=== PATIENT | male | born 1950 | race African-American/Black ===

== ENCOUNTER 2023-09-06 13:21 | Emergency (ER) | payer BC, SELFPAY ==
[2023-09-06 13:30] VITALS: BP 156/99
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
[2023-09-06] MEDS: TORADOL 30 MG IM (14:04)
--- NOTE | 2023-09-06 15:56 | EDRN ---
Reviewed discharge instructions with patient. Verbalized understanding.
[2023-09-06 15:57] VITALS: BP 137/78
== END 2023-09-06 15:58 | disposition home or self-care (01) ==
LOC: EMR 13:21
PROVIDERS: EMERGENCY PHYSICIAN Student in an Organized Health Care Education/Training Program; FAMILY PHYSICIAN Internal Medicine
DX: S39.012A Strain of muscle, fascia and tendon of lower back, initial encounter (principal); X58.XXXA Exposure to other specified factors, initial encounter; R03.0 Elevated blood-pressure reading, without diagnosis of hypertension; Z87.891 Personal history of nicotine dependence
CPT/HCPCS: 99284; 96372; 72110

== ENCOUNTER → 2023-11-06 10:11 | Outpatient (REF) | payer BC, SELFPAY ==
[2023-11-06 10:58] LABS: % Basophils 0.6 % (0-2); % Eosinophils 0.9 % (0-6); % Immature Granulocytes 0.3 % (0-0.5); % Monocytes 7.9 % (1.7-9.3); % Neutrophils 71.3 % (42.2-75.2); Absolute Basophils 0.1 10^3/uL (0-0.2); Absolute Eosinophils 0.1 10^3/uL (0-0.7); Absolute Lymphocytes 1.5 10^3/uL (1.2-3.4); Absolute Monocytes 0.6 10^3/uL (0.1-0.6); Absolute Neutrophils 5.7 10^3/uL (1.4-6.5); Hematocrit 47.3 % (39.0-52.0); Hemoglobin 15.6 g/dL (13.0-18.0); Mean Corpuscular Hgb 30.3 pg (27.0-31.0); Mean Corpuscular Volume 91.8 fL (80.0-94.0); Mean Platelet Volume 9.8 fL (7.4-10.4); Nucleated Red Blood Cells % 0 % (-); Platelet Count 280 10^3/uL (130-400); Red Blood Cell Count 5.15 10^6/uL (4.70-6.10); Red Cell Dist. Width 13.5 % (11.5-14.5); White Blood Cell Count 7.9 10^3/uL (4.8-10.8)
[2023-11-06 11:37] LABS: ALT (SGPT) 16 U/L (0-50); AST (SGOT) 24 U/L (17-59); Albumin 4.2 g/dl (3.5-5.0); Alkaline Phosphatase 75 U/L (38-126); Blood Urea Nitrogen 14 mg/dl (9-20); Calcium 9.9 mg/dl (8.4-10.2); Carbon Dioxide 26 mmol/L (22-30); Chloride 106 mmol/L (98-107); Glucose 115 mg/dl (70-99); HDL Cholesterol 65 mg/dl; LDL Cholesterol, Calculated 121 mg/dl; Potassium 4.5 mmol/L (3.5-5.1); Sodium 139 mmol/L (135-145); Total Bilirubin 0.5 mg/dl (0.2-1.3); Total Cholesterol 214 mg/dl (50-199); Total Protein 6.8 g/dl (6.3-8.2); Triglyceride 141 mg/dl (10-149); Very Low Density Lipoprotein 28 mg/dl (0-30); eGFR > 60.00
[2023-11-06 12:31] LABS: PSA, Total - Screen 4.29 ng/ml (0.0-4.0); TSH Reflex To Free T4 0.64 uIU/ml (0.47-4.68)
== END ==
LOC: REG 10:11
PROVIDERS: ATTENDING PHYSICIAN Internal Medicine
DX: R73.9 Hyperglycemia, unspecified (principal); E78.01 Familial hypercholesterolemia; I10 Essential (primary) hypertension; R97.20 Elevated prostate specific antigen [PSA]
CPT/HCPCS: 36415; 80053; 80061; 84443; 85025; G0103

== ENCOUNTER → 2024-03-06 08:21 | Outpatient (REF) | payer BC, SELFPAY | LOC: MRI 3T 08:21 | PROVIDERS: ATTENDING PHYSICIAN Specialist; FAMILY PHYSICIAN Internal Medicine | DX: R97.20 Elevated prostate specific antigen [PSA] (principal) | CPT/HCPCS: 72197; A9575 ==

== ENCOUNTER → 2024-05-22 10:07 | Outpatient (REF) | payer BC, SELFPAY ==
[2024-05-22 12:01] LABS: PSA, Total - Diagnostic 3.34 ng/ml (0.0-4.0)
== END ==
LOC: REG 10:07
PROVIDERS: ATTENDING PHYSICIAN Specialist; FAMILY PHYSICIAN Internal Medicine
DX: R97.20 Elevated prostate specific antigen [PSA] (principal)
CPT/HCPCS: 36415; 84153

== ENCOUNTER 2024-07-16 06:26 | Day surgery (SDC) | payer BC, SELFPAY | END 2024-07-16 12:42 | disposition home or self-care (01) | LOC: GI 06:26 | PROVIDERS: ATTENDING PHYSICIAN Internal Medicine Gastroenterology | DX: K57.30 Diverticulosis of large intestine without perforation or abscess without bleeding (principal); K64.8 Other hemorrhoids; D12.0 Benign neoplasm of cecum; D12.3 Benign neoplasm of transverse colon; D12.5 Benign neoplasm of sigmoid colon; K63.5 Polyp of colon; K62.1 Rectal polyp | CPT/HCPCS: 45385; 45380; 88305 ==

== ENCOUNTER → 2024-11-19 11:41 | Outpatient (REF) | payer BC, SELFPAY ==
[2024-11-19 14:35] LABS: PSA, Total - Diagnostic 4.38 ng/ml (0.0-4.0)
== END ==
LOC: REG 11:41
PROVIDERS: ATTENDING PHYSICIAN Specialist; FAMILY PHYSICIAN Internal Medicine
DX: R97.20 Elevated prostate specific antigen [PSA] (principal)
CPT/HCPCS: 36415; 84153

== ENCOUNTER → 2024-12-15 12:12 | Outpatient (REF) | payer BC, SELFPAY ==
[2024-12-15 13:11] LABS: % Basophils 0.5 % (0-2); % Eosinophils 0.4 % (0-6); % Immature Granulocytes 0.3 % (0-0.5); % Lymphocytes 13.1 % (20.5-51.1); % Monocytes 7.5 % (1.7-9.3); % Neutrophils 78.2 % (42.2-75.2); Absolute Basophils 0.1 10^3/uL (0-0.2); Absolute Eosinophils 0.1 10^3/uL (0-0.7); Absolute Lymphocytes 1.6 10^3/uL (1.2-3.4); Absolute Monocytes 0.9 10^3/uL (0.1-0.6); Absolute Neutrophils 9.3 10^3/uL (1.4-6.5); Hematocrit 47.2 % (39.0-52.0); Hemoglobin 15.8 g/dL (13.0-18.0); Mean Corp Hgb Conc. 33.5 g/dL (33.0-37.0); Mean Corpuscular Volume 92.7 fL (80.0-94.0); Mean Platelet Volume 10.3 fL (7.4-10.4); Nucleated Red Blood Cells % 0 % (-); Platelet Count 290 10^3/uL (130-400); Red Blood Cell Count 5.09 10^6/uL (4.70-6.10); Red Cell Dist. Width 13.6 % (11.5-14.5); White Blood Cell Count 11.9 10^3/uL (4.8-10.8)
[2024-12-15 13:41] LABS: ALT (SGPT) 17 U/L (0-50); AST (SGOT) 20 U/L (17-59); Albumin 4.6 g/dl (3.5-5.0); Alkaline Phosphatase 87 U/L (38-126); Blood Urea Nitrogen 17 mg/dl (9-20); Calcium 9.9 mg/dl (8.4-10.2); Carbon Dioxide 26 mmol/L (22-30); Chloride 107 mmol/L (98-107); Glucose 88 mg/dl (70-99); HDL Cholesterol 62 mg/dl; LDL Cholesterol, Calculated 144 mg/dl; Potassium 4.7 mmol/L (3.5-5.1); Sodium 142 mmol/L (135-145); Total Bilirubin 0.5 mg/dl (0.2-1.3); Total Cholesterol 222 mg/dl (50-199); Total Protein 7.3 g/dl (6.3-8.2); Triglyceride 84 mg/dl (10-149); Very Low Density Lipoprotein 16 mg/dl (0-30); eGFR > 60.00
[2024-12-15 14:10] LABS: TSH Reflex To Free T4 0.52 uIU/ml (0.47-4.68)
== END ==
LOC: RAD 12:12
PROVIDERS: ATTENDING PHYSICIAN Specialist; FAMILY PHYSICIAN Internal Medicine
DX: R39.15 Urgency of urination (principal); Z00.00 Encounter for general adult medical examination without abnormal findings
CPT/HCPCS: 36415; 76770; 80053; 80061; 84443; 85025

== ENCOUNTER 2025-03-10 06:13 | Day surgery (SDC) | payer BC, SELFPAY ==
[2025-02-25 14:04] VITALS: BMI 25.3
--- NOTE | 2025-03-03 12:18 | PTCARENOTE ---
PT states had +MRSA 07/2022 during inpatient visit at . Upon the review of the record, microbiology showing +MSSA result (culture sensitive to amoxicillin). Sharlene Guerrero (IP) notified, confirmed no record of hx MRSA linked to any stay at ,
therefore no need for isolation. RN called patient and provided detailed education.
[2025-03-10] VITALS (15 sets, daily range): BP systolic 82–157; BP diastolic 49–96; BMI 25.3
[2025-03-10] MEDS: NORMOSOL-R/PLASMALYTE-A 1000 IV (07:15)
--- NOTE | 2025-03-10 09:15 | W.IMMPOSTOP ---
Surgical Immed Post Op Note
-
Primary Surgeon: Franchesca
Assisting Surgeon: None
Pre-op Diagnosis: BPH
Post-op Diagnosis: Same
Procedure Performed: TURP
Anesthesia Type: GET
Specimen / Cultures: prostate chips
Estimated Blood Loss: 15 ml
Complications: None
[2025-03-10] MEDS: DILAUDID 0.25 MG IV ×2 (09:25→09:37)
[2025-03-10 10:11] LABS: Blood Urea Nitrogen 13 mg/dl (9-20); Calcium 8.8 mg/dl (8.4-10.2); Carbon Dioxide 25 mmol/L (22-30); Chloride 107 mmol/L (98-107); Estimated Creatinine Clearance 96 ml/min; Glucose 125 mg/dl (70-99); Potassium 4.9 mmol/L (3.5-5.1); Sodium 134 mmol/L (135-145); eGFR > 60.00
[2025-03-10] MEDS: LR 1000 IV ×2 (12:07→23:00)
[2025-03-10] MEDS: COLACE 100 MG PO ×2 (12:07→16:42)
[2025-03-10] MEDS: ANCEF 10 IV ×2 (15:14→21:30)
[2025-03-10] MEDS: AMBIEN 10 MG PO (21:16)
[2025-03-11 03:25] VITALS: BP 136/72
[2025-03-11] MEDS: ANCEF 10 IV ×3 (05:15→22:02)
[2025-03-11 06:02] LABS: Hematocrit 43.0 % (39.0-52.0); Hemoglobin 14.4 g/dL (13.0-18.0); Mean Corp Hgb Conc. 33.5 g/dL (33.0-37.0); Mean Corpuscular Volume 91.3 fL (80.0-94.0); Platelet Count 282 10^3/uL (130-400); Red Cell Dist. Width 12.8 % (11.5-14.5)
[2025-03-11 06:28] LABS: Blood Urea Nitrogen 11 mg/dl (9-20); Calcium 9.4 mg/dl (8.4-10.2); Carbon Dioxide 25 mmol/L (22-30); Chloride 108 mmol/L (98-107); Estimated Creatinine Clearance 96 ml/min; Glucose 112 mg/dl (70-99); Potassium 4.2 mmol/L (3.5-5.1); Sodium 138 mmol/L (135-145); eGFR > 60.00
[2025-03-11] MEDS: COLACE 100 MG PO ×3 (06:41→17:26)
[2025-03-11 08:20] VITALS: BP 141/75
--- NOTE | 2025-03-11 08:40 | W.PN.SURGUPD ---
Surgical Update
Surgical Update
Stable 1 day s/p TURP
Afeb/VSS
Comfortable
Labs good
Pedro diet
---
Stop CBI at 1500 today
OOB
[2025-03-11] MEDS: PAXIL 10 MG PO (08:46)
[2025-03-11] MEDS: NORVASC 5 MG PO (08:46)
[2025-03-11] MEDS: PROSCAR 5 MG PO (08:47)
[2025-03-11 11:26] VITALS: BP 137/70
--- NOTE | 2025-03-11 12:33 | CM ---
Cm reviewed medical records. Patient denies VN, SNF or DME. patient is active with his PCP. Patient has medication coverage.
PLAN: home vs Home with [facility], pending TOV
[2025-03-11] MEDS: LR 1000 IV (12:40)
[2025-03-11 15:46] VITALS: BP 135/68
[2025-03-11 19:15] VITALS: BP 143/72
[2025-03-11] MEDS: ATIVAN 0.5 MG PO (22:02)
[2025-03-11 23:15] VITALS: BP 159/82
[2025-03-12] MEDS: COLACE 100 MG PO ×2 (06:30→13:14)
[2025-03-12] MEDS: ANCEF 10 IV (06:30)
[2025-03-12 07:20] VITALS: BP 136/76
[2025-03-12] MEDS: PAXIL 10 MG PO (08:46)
[2025-03-12] MEDS: PROSCAR 5 MG PO (08:46)
[2025-03-12] MEDS: NORVASC 5 MG PO (08:46)
--- NOTE | 2025-03-12 09:51 | W.DS.TRANS ---
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
-
Discharge Instructions:
Sleep Apnea Risk Intermediate
Instructions:
Stand-Alone Forms:
Changes to Home Medications: No
Discharge Medications:
DC Medications w/original date entered in [facility]
paroxetine HCl 10 mg tablet 10 mg PO DAILY Mental Health/Anxiety 01/31/10
amlodipine 5 mg tablet 5 mg PO DAILY Blood pressure 01/13/15
finasteride 5 mg tablet (Proscar) 5 mg PO DAILY 03/03/25
lorazepam 0.5 mg tablet 0.5 mg PO DAILY PRN ANXIETY 03/03/25
sulfamethoxazole 800 mg-trimethoprim 160 mg tablet (Bactrim DS) 1 tab PO Q12H COMPLICATION POST HERNIA 03/03/25
vibegron 75 mg tablet (Gemtesa) 75 mg PO DAILY 03/03/25
zolpidem 10 mg tablet (Ambien) 10 mg PO HS PRN INSOMNIA 03/03/25
Home Medication Changes
Pending Results: No
--- NOTE | 2025-03-12 10:30 | CM ---
Reviewed the chart notes and spoke with the patient at the bedside. Patient for discharge to home today. No needs. Friend will provide transportation.
[2025-03-12 11:20] VITALS: BP 152/74
== END 2025-03-12 13:33 | disposition home or self-care (01) ==
LOC: SDS 06:13
PROVIDERS: ATTENDING PHYSICIAN Specialist; FAMILY PHYSICIAN Internal Medicine
DX: N40.1 Benign prostatic hyperplasia with lower urinary tract symptoms (principal); R33.8 Other retention of urine; N32.81 Overactive bladder
CPT/HCPCS: 52601; 36415; 80048; 85027; 88305; 93005

== ENCOUNTER → 2025-05-05 11:16 | Outpatient (REF) | payer BC, SELFPAY ==
[2025-05-05 12:58] LABS: Glycohemoglobin (HgbA1c) 5.3 % (4.0-5.9)
[2025-05-05 13:05] LABS: ALT (SGPT) 17 U/L (0-50); AST (SGOT) 19 U/L (17-59); Albumin 4.4 g/dl (3.5-5.0); Alkaline Phosphatase 79 U/L (38-126); Blood Urea Nitrogen 18 mg/dl (9-20); Calcium 9.9 mg/dl (8.4-10.2); Carbon Dioxide 28 mmol/L (22-30); Chloride 105 mmol/L (98-107); Glucose 109 mg/dl (70-99); HDL Cholesterol 67 mg/dl; LDL Cholesterol, Calculated 143 mg/dl; Potassium 4.5 mmol/L (3.5-5.1); Sodium 139 mmol/L (135-145); Total Protein 7.1 g/dl (6.3-8.2); Very Low Density Lipoprotein 22 mg/dl (0-30); eGFR > 60.00
[2025-05-05 14:07] LABS: PSA, Total - Diagnostic 4.99 ng/ml (0.0-4.0)
== END ==
LOC: REG 11:16
PROVIDERS: ATTENDING PHYSICIAN Specialist; FAMILY PHYSICIAN Internal Medicine
DX: R97.20 Elevated prostate specific antigen [PSA] (principal); I10 Essential (primary) hypertension; R73.9 Hyperglycemia, unspecified
CPT/HCPCS: 36415; 80053; 80061; 83036; 84153